=== PATIENT | female | born 1990 | race African-American/Black ===

== ENCOUNTER → 2016-11-13 | Outpatient (CLI) | payer OTHER ==
[~2016-11-13] MED LIST: ACET50TA PO; LABE20TAB PO; PROC30TA PO
[2016-11-13 16:03] LABS: BASO # 0.1 K/mm3 (0.0-0.2); BASO % 0.6 % (0.0-1.0); EOS # 0.1 K/mm3 (0.0-0.50); EOS % 0.6 % (0.0-3.0); LARGE UNSTAINED CELL # 0.2 K/mm3 (0.0-0.4); LARGE UNSTAINED CELL % 2.1 % (0.0-4.0); LYMPH # 1.3 K/mm3 (1.5-6.5); LYMPH % 11.2 % (24.0-44.0); MEAN CORPUSCULAR HEMOGLOBIN 26.2 pg (27.0-33.0); MEAN CORPUSCULAR HGB CONC 34.9 g/dl (32.0-36.5); MEAN CORPUSCULAR VOLUME 74.9 fl (80.0-96.0); MONO # 0.5 K/mm3 (0.0-0.8); MONO % 5.3 % (0.0-5.0); NEUTROPHILS # 8.1 K/mm3 (1.8-7.7); NEUTROPHILS % 80.1 % (36.0-66.0); PLATELET COUNT, AUTOMATED 231 k/mm3 (150-450); RED CELL DISTRIBUTION WIDTH 14.5 % (11.5-14.5)
== END ==
LOC: M LAB 13:08
PROVIDERS: ATTEND Obstetrics & Gynecology
DX: Z34.83 Encounter for supervision of other normal pregnancy, third trimester (principal)

== ENCOUNTER 2017-02-16 15:03 | Outpatient (RCR) | payer OTHER ==
[2017-02-17] MEDS ORDERED: TYLE325T5 PO (15:45)
[2017-02-17] MEDS ORDERED: PRENTAB9 PO (15:45)
[2017-02-24] MEDS ORDERED: MOTR200T44 PO (08:45)
[2017-02-24] MEDS ORDERED: CYCL10TA PO (08:45)
== END 2017-03-01 ==
LOC: M PT 15:03
PROVIDERS: ATTEND Specialist
DX: Z51.89 Encounter for other specified aftercare (principal); M54.2 Cervicalgia; M25.551 Pain in right hip; M25.552 Pain in left hip

== ENCOUNTER 2017-02-17 15:34 | Outpatient (CLI) | payer OTHER ==
[~2017-02-17] VITALS: Ht 157.5 cm; Wt 82.0 kg
[2017-02-17 15:44] VITALS: BP 147/83
[2017-02-17] MEDS ORDERED: TYLE325T5 PO (15:45)
[2017-02-17] MEDS ORDERED: PRENTAB9 PO (15:45)
[2017-02-17 15:46] VITALS: BP 147/83
[2017-02-17] MEDS ORDERED: CYCLOBENZAPRINE 10 MG TAB PO ONE (16:30)
[2017-02-17 16:33] VITALS: BP 142/80
[2017-02-17 17:19] LABS: MEAN CORPUSCULAR HEMOGLOBIN 21.9 pg (27.0-33.0); MEAN CORPUSCULAR HGB CONC 32.7 g/dl (32.0-36.5); RED CELL DISTRIBUTION WIDTH 16.9 % (11.5-14.5); WHITE BLOOD COUNT 7.7 K/mm3 (4.0-10.0)
[2017-02-17 17:34] VITALS: BP 139/76
[2017-02-17 17:39] LABS: ALT/SGPT 25 U/L (12-78); AST/SGOT 42 U/L (15-37); BILIRUBIN,TOTAL 0.4 MG/DL (0.2-1.0); CREATININE FOR GFR 0.81 MG/DL (0.55-1.02); GLOMERULAR FILTRATION RATE > 60.0 (>60); URIC ACID 5.2 MG/DL (2.6-6.0)
[2017-02-17 17:56] VITALS: BP 130/68
== END 2017-02-17 18:24 | disposition home or self-care (01) ==
LOC: M LDO 15:34
PROVIDERS: ATTEND Advanced Practice Midwife
DX: O99.89 Other specified diseases and conditions complicating pregnancy, childbirth and the puerperium (principal); M54.9 Dorsalgia, unspecified; G89.29 Other chronic pain; Z3A.39 39 weeks gestation of pregnancy

== ENCOUNTER → 2017-02-18 | Outpatient (REF) | payer OTHER ==
[~2017-02-18] MED LIST changes: +CYCL10TA PO; +MOTR200T44 PO; +PRENTAB9 PO; +TYLE325T5 PO
[2017-02-18 18:09] LABS: CREATININE, SERUM 0.8 MG/DL (0.6-1.0)
[2017-02-18 19:14] LABS: CREATININE CLEARANCE, URINE 79.9 ML/MIN (75-115)
== END ==
LOC: M LAB REF 18:03
PROVIDERS: ATTEND Advanced Practice Midwife
DX: O13.3 Gestational [pregnancy-induced] hypertension without significant proteinuria, third trimester (principal)

== ENCOUNTER 2017-02-22 06:07 | Inpatient (IN) | payer OTHER ==
[~2017-02-22] VITALS: Ht 157.5 cm; Wt 82.0 kg
[2017-02-22] VITALS (8 sets, daily range): BP systolic 136–172; BP diastolic 66–95
[~2017-02-22 06:07] MED LIST changes: -CYCL10TA PO; -MOTR200T44 PO
[2017-02-22] MEDS ORDERED: miSOPROStol 50 MCG 1/2 TAB (S0191) PO SCH ×2 (06:45→12:00)
--- NOTE | 2017-02-22 07:25 | HPE ---
DATE OF ADMISSION: 02/22/2017 A 26-year-old 2, para 1 female at 39-6/7 weeks gestation by last menstrual period (LMP) consistent with 14-week ultrasound, estimated date of confinement (EDC) 02/23/2017, presents for labor induction. The patient has severe right hip pain due to a preexisting injury, which has increased in intensity during the course of the . COURSE: The patient initiated care at 14 weeks gestation on 08/25/2016. Her blood pressure at her first visit was 122/66, weight 160 pounds. course is significant for pain in her right hip, which became worse. She also had lower back pain and neck pain. HISTORY: 1. July 2014: 37 weeks, vaginal delivery, 6 pound 12 ounce female . That was complicated by hypertension, and she was induced at 37 weeks. MEDICAL HISTORY: 1. Hip and back pain. SURGICAL HISTORY: 1. Laparoscopic surgery on her right hip in 2012. ALLERGIES: TRAMADOL, SULFA, OXYCODONE. FAMILY HISTORY: Noncontributory. SOCIAL HISTORY: The patient is . She denies cigarettes, alcohol or drug use. PHYSICAL EXAMINATION: Blood pressure 122/80, weight 185. She is in no apparent distress. Head and neck exam is normal. Lungs: Clear. Heart: Regular rate and rhythm. Abdomen: Nontender and gravid. heart tones: Category 1. Sterile vaginal exam: 2-3 cm, 80% effaced, -2 station, posterior vertex, soft. Extremities: Nontender. Contractions: Irregular. LABORATORY: Blood type O positive, rubella equivocal, GBS positive urine, normal diabetes screen. ASSESSMENT: A 26-year-old, 2, para 1 at 39-6/7 weeks gestation, presents for labor induction. The patient is admitted on 02/22/2017. .
[2017-02-22 07:52] LABS: MEAN CORPUSCULAR HEMOGLOBIN 23.2 pg (27.0-33.0); MEAN CORPUSCULAR HGB CONC 34.7 g/dl (32.0-36.5); MEAN CORPUSCULAR VOLUME 67.1 fl (80.0-96.0); RED CELL DISTRIBUTION WIDTH 17.5 % (11.5-14.5); WHITE BLOOD COUNT 9.6 K/mm3 (4.0-10.0)
[2017-02-22] MEDS ORDERED: PENICILLIN G POTASSIUM IV 5 MU in D5W MINI-BAG PLUS 100 ML IV STA (07:55)
[2017-02-22] MEDS ORDERED: PENICILLIN G POTASSIUM IV 2.5 MU in D5W 100 ML IV SCH (12:00)
[2017-02-22] MEDS ORDERED: FENTANYL 2MCG/ML ROPIVACAINE 0.2% IN 0.9% NACL 200ML IVBAG As Ordered ONE (12:04)
[2017-02-22] MEDS ORDERED: diphenhydrAMINE INJ 50MG/ML VIAL (J1200) IV PRN (13:30)
[2017-02-22] MEDS ORDERED: ONDANSETRON 4MG/2ML VIAL (J2405) IV PRN ×2 (13:30→14:00)
[2017-02-22] MEDS ORDERED: ePHEDrine SULFATE 25 MG/5 ML(5MG/ML) SYRINGE IV PRN (13:30)
[2017-02-22] MEDS ORDERED: REFRIGERATOR IV KEYS XX PRN (13:30)
[2017-02-22] MEDS ORDERED: FENTANYL/ROPIVACAINE/NACL BAG 200 ML EPIDURAL SCH (13:30)
[2017-02-22] MEDS ORDERED: LACTATED RINGER'S 1000 ML IV PRN (13:30)
[2017-02-22] MEDS ORDERED: EPIDURAL COMMENT XX SCH (13:30)
[2017-02-22] MEDS ORDERED: NALOXONE INJ 0.4 MG/1 ML VIAL (J2310) IV PRN (13:30)
[2017-02-22] MEDS ORDERED: EPIDURAL/PCA KEYS XX PRN (13:30)
[2017-02-22] MEDS ORDERED: OXYTOCIN 30 UNITS IN 0.9% NaCl 500ML IV BAG (J2590) As Ordered ONE (13:42)
[2017-02-22] MEDS ORDERED: METHYLERGONOVINE MALEATE 0.2 MG TAB PO PRN (14:00)
[2017-02-22] MEDS ORDERED: OXYTOCIN DRIP 30 UNITS in APPROPRIATE DILUENT 1 EA IV ONE (14:00)
[2017-02-22] MEDS ORDERED: DOCUSATE SODIUM 100 MG CAP PO PRN (14:00)
[2017-02-22] MEDS ORDERED: RHOGAM 300 MCG (1500 IU) INJ (J2790) IM SCH (14:00)
[2017-02-22] MEDS ORDERED: MEASLES,MUMPS,RUBELLA VACCINE INJ (MMR-II) (90707) SC SCH (14:00)
[2017-02-22] MEDS ORDERED: DIBUCAINE 1% OINTMENT 30GM TOP PRN (14:00)
[2017-02-22] MEDS: IBUPROFEN 800 MG TAB PO PRN (16:09)
[2017-02-22] MEDS: ACETAMINOPHEN 500 MG TAB PO PRN (17:44)
[2017-02-22] MEDS: CYCLOBENZAPRINE 10 MG TAB PO SCH (20:48)
[2017-02-23] MEDS: IBUPROFEN 800 MG TAB PO PRN ×3 (01:34→19:41)
[2017-02-23 05:44] VITALS: BP 127/74
[2017-02-23] MEDS: CYCLOBENZAPRINE 10 MG TAB PO SCH ×3 (08:29→21:00)
[2017-02-23] MEDS: PRENATAL VITAMIN TAB PO SCH (08:30)
[2017-02-23] MEDS: ACETAMINOPHEN 500 MG TAB PO PRN ×2 (16:28→22:21)
[2017-02-23 18:00] VITALS: BP 140/80
[2017-02-24] MEDS: IBUPROFEN 800 MG TAB PO PRN (05:51)
[2017-02-24 06:37] VITALS: BP 138/78
[2017-02-24] MEDS: CYCLOBENZAPRINE 10 MG TAB PO SCH (08:06)
[2017-02-24] MEDS: PRENATAL VITAMIN TAB PO SCH (08:06)
[2017-02-24] MEDS ORDERED: CYCL10TA PO (08:45)
[2017-02-24] MEDS ORDERED: MOTR200T44 PO (08:45)
[2017-02-24] MEDS: ACETAMINOPHEN 500 MG TAB PO PRN (12:59)
== END 2017-02-24 15:05 | disposition home or self-care (01) | DRG 775 ==
LOC: M LDI 06:07 → M OBS 15:46
PROVIDERS: ADMIT Specialist; ATTEND Specialist
PROC: 10E0XZZ Delivery of Products of Conception, External Approach (ICD-10-PCS; principal; 2017-02-22)
PROC: 3E0P7GC Introduction of Other Therapeutic Substance into Female Reproductive, Via Natural or Artificial Opening (ICD-10-PCS; 2017-02-22)
DX: O99.89 Other specified diseases and conditions complicating pregnancy, childbirth and the puerperium (principal); O99.824 Streptococcus B carrier state complicating childbirth; Z3A.39 39 weeks gestation of pregnancy; M54.2 Cervicalgia; M54.5 Low back pain; M25.551 Pain in right hip; Z37.0 Single live birth

== ENCOUNTER 2017-03-07 19:41 | Emergency (ER) | payer OTHER ==
[~2017-03-07 19:41] MED LIST changes: +CYCL10TA PO; +MOTR200T44 PO
[2017-03-07] MEDS ORDERED: NEXI40CA PO (19:49)
[2017-03-07] MEDS ORDERED: METOCLOPRAMIDE INJ 10MG/2ML VIAL (J2765) IV ONE (20:15)
[2017-03-07] MEDS ORDERED: diphenhydrAMINE INJ 50MG/ML VIAL (J1200) IV ONE (20:15)
[2017-03-07] MEDS ORDERED: methylPREDNISolone INJ 125 MG/2 ML VIAL (J2930) IV ONE (20:15)
[2017-03-07 21:11] LABS: ADD MORPHOLOGY? YES; BASO % 0.6 % (0.0-1.0); EOS # 0.1 K/mm3 (0.0-0.50); EOS % 1.7 % (0.0-3.0); LARGE UNSTAINED CELL # 0.1 K/mm3 (0.0-0.4); LARGE UNSTAINED CELL % 1.3 % (0.0-4.0); LYMPH # 1.4 K/mm3 (1.5-6.5); LYMPH % 17.6 % (24.0-44.0); MEAN CORPUSCULAR HEMOGLOBIN 22.5 pg (27.0-33.0); MEAN CORPUSCULAR HGB CONC 32.4 g/dl (32.0-36.5); MEAN CORPUSCULAR VOLUME 69.4 fl (80.0-96.0); MONO # 0.3 K/mm3 (0.0-0.8); MONO % 4.1 % (0.0-5.0); NEUTROPHILS # 5.4 K/mm3 (1.8-7.7); NEUTROPHILS % 74.7 % (36.0-66.0); PLATELET COUNT, AUTOMATED 323 k/mm3 (150-450); RED CELL DISTRIBUTION WIDTH 20.1 % (11.5-14.5); WHITE BLOOD COUNT 7.2 K/mm3 (4.0-10.0)
[2017-03-07 21:21] LABS: ALBUMIN 3.8 GM/DL (3.2-5.2); ALBUMIN/GLOBULIN RATIO 0.83 (1.00-1.93); ALKALINE PHOSPHATASE 109 U/L (45-117); ALT/SGPT 59 U/L (12-78); ANION GAP 10 MEQ/L (8-16); AST/SGOT 43 U/L (15-37); BILIRUBIN,DIRECT 0.2 MG/DL (0.0-0.2); BILIRUBIN,TOTAL 0.7 MG/DL (0.2-1.0); BLOOD UREA NITROGEN 12 MG/DL (7-18); CALCIUM LEVEL 8.8 MG/DL (8.5-10.1); CARBON DIOXIDE LEVEL 23 MEQ/L (21-32); CHLORIDE LEVEL 107 MEQ/L (98-107); CREATININE FOR GFR 0.98 MG/DL (0.55-1.02); GLOMERULAR FILTRATION RATE > 60.0 (>60); GLUCOSE, FASTING 74 MG/DL (70-105); POTASSIUM SERUM 3.7 MEQ/L (3.5-5.1); SODIUM LEVEL 140 MEQ/L (136-145); TOTAL PROTEIN 8.4 GM/DL (6.4-8.2)
[2017-03-07 21:44] LABS: ANISOCYTOSIS 2+; MICROCYTOSIS 2+
[2017-03-07 21:45] LABS: HYPOCHROMASIA 1+
[2017-03-07 22:04] VITALS: BP 142/99
[2017-03-07] MEDS ORDERED: ACETAMINOPHEN TAB 650MG DOSE (2X325MG) PO ONE (22:30)
== END 2017-03-07 23:13 | disposition home or self-care (01) ==
LOC: M ED 20:53
DX: G43.909 Migraine, unspecified, not intractable, without status migrainosus (principal)
CPT/HCPCS: 36415; 80048; 80076; 81001; 85025; 96374; 96375; 99283; J1200; J2765; J2930